=== PATIENT | female | born 1940 | race Caucasian/White ===

== ENCOUNTER 2022-04-12 08:42 | Day surgery (SDC) | payer MEDICARE, OTHER, SELFPAY ==
[2022-04-12] VITALS (7 sets, daily range): BP systolic 114–150; BP diastolic 71–90; PULSE 59–96; RESP 16–18; TEMP 36.1–36.2; O2SAT 93–99; BMI 28.6
--- NOTE | 2022-04-12 09:18 | PCM.HP.BLA ---
History and Physical Date of Admission: 04/12/22 Visit Reasons: HERNIA CONTAINING BOWEL Chief Complaint: right inguinal hernia, hx hernia repair Commercial Stripper Required: No Is patient in pain?: No Allergies ampicillin Allergy (Mild, Verified 04/06/22 15:25) rash Medications amlodipine 2.5 mg tablet tablet PO 04/06/22 [History Confirmed 04/06/22] atorvastatin 40 mg tablet tablet PO 04/06/22 [History Confirmed 04/06/22] carvedilol 6.25 mg tablet ea PO 04/06/22 [History Confirmed 04/06/22] cholecalciferol (vitamin D3) 50 mcg (2,000 unit) capsule 50 mcg PO DAILY 04/06/22 [History Confirmed 04/06/22] clopidogrel 75 mg tablet tablet PO 04/06/22 [History Confirmed 04/06/22] dicyclomine 10 mg capsule cap PO 04/06/22 [History Confirmed 04/06/22] paroxetine HCl 20 mg tablet tablet PO 04/06/22 [History Confirmed 04/06/22] vit C,E,zinc,Bb-pryqa-1-lutein-zeaxanthin 250 mg-2.5 mg-0.5 mg capsule 1 cap PO BID cap 04/06/22 [History Confirmed 04/06/22] Is last menstrual period known: No Post menopausal: Yes Patient : No PFSH Medical History (Updated 04/06/22 @ 15:[address] 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 The patient early in February had severe right lower quadrant abdominal pain. She had had a CT scan at [facility] showing possible constipation extensive diverticulosis but no diverticulitis. She was diagnosed with a urinary tract infection at that time. She was placed on cephalexin therapy for 10 days. She had a CT angiogram of the abdomen September 2021 which showed 30% renal artery stenosis. She had a small fat-containing left inguinal hernia. Inflammatory changes of the right lower quadrant abdominal wall suspicious for previous surgery. Her initial referral was for evaluation of the abdominal pain with likely consideration for endoscopic evaluation. Among her other medications she is on clopidogrel. Report is that she had a right inguinal hernia repair and umbilical hernia repair done by Dr. Loaiza January 2021. She is also had a right total hip replacement. Her most recent screening colonoscopy was by Dr. Jesus Amador February 28, 2017 and was unremarkable. She is being referred by Dr. Dyan Portillo and a written copy of my surgical consult recommendations will be returned to her. The patient is continued to have episodes of pain. On January 26, 2021 at [facility] she had a complete abdominal ultrasound. Gallbladder appeared normal. It is stated that in the area of tenderness by the patient right lower quadrant there is felt to be a hernia containing bowel with the portion of bowel external dickson abdominal wall measuring 3.2 x 1.6 x 2.1 cm ROS General General: No weight change, appetite, fatigue, colon cancer, breast cancer or weakness HEENT HEENT: Yes eye surgery; No difficulty swallowing, eye injury, swollen glands or hoarseness Endo Endocrine: No thyroid disease, diabetes mellitus, thyroid cancer, Hair loss, heat intolerance or cold intolerance Musc Musculoskeletal: Yes back problems, arthritis and rheumatoid arthritis; No gout or joint pain Cardio Cardiovascular: Yes murmur, heart disease, high blood pressure and heart stent; No pacemaker, atrial fibrillation, heart attack, palpitations, shortness of breat with exertion or chest pain Psych Psychiatric: Yes anxiety; No depression or hearing voices Resp Respiratory: No shortness of breath, Yes sleep apnea, No cough, No COPD, No asthma, No emphysema and No wheezing Gastro Gastrointestinal: Yes abdominal pain, No nausea or vomiting, No diarrhea, No constipation, No blood in stool, No acid reflux, No hemorrhoids, No ulcers, No gallbladder problem and No black,tarry stools Jim Hematologic: Yes blood thinners, No blood disorders, No bleeding, No anemia and No blood clots Neuro Neurologic: No weakness Exam Const General: cooperative, healthy appearing, comfortable and no acute distress Nutritional Appearance: obese Orientation: alert and awake [facility] Head: normal to inspection Eyes General: appearance normal, both eyes and all related structures Neck Neck: normal visual inspection Resp Effort & Inspection: normal respiratory effort Auscultation: clear to auscultation bilaterally Cardio Rate: regular rate Rhythm: regular rhythm GI Other: , Nontender, incisional hernia at the superior portion of the umbilicus reducible, 2 infraumbilical midline incisions, tenderness right infraumbilical area with an associated vertical right perirectus incision, distinct fascial defect not palpable, no gross inguinal defects, normal bowel sounds, somewhat prune shaped abdominal wall Musc Cervical Spine: normal cervical lordosis Skin General: no rashes or lesions noted Neuro General: patient alert, patient awake and patient oriented x3 Extrem General: no calf tenderness Psych Appearance: grossly normal Assessment and Plan Assessment and Plan (1) Abdominal pain: Status: Acute Qualifiers: Abdominal location: right lower quadrant Qualified Code(s): R10.31 - Right lower quadrant pain (2) Incisional hernia: Status: Acute Qualifiers: Obstruction and gangrene presence: without obstruction or gangrene Qualified Code(s): K43.2 - Incisional hernia without obstruction or gangrene (3) Chronic constipation: Status: Chronic Plan - Dr. Eddy Moraes MD: Challenging 82-year-old female with spasms of right lower quadrant pain. On CT imaging she has significant amount of right-sided stool. She does not seemingly correlate bowel movements or use of fiber supplement or MiraLAX as helping or hindering her discomfort. She has had this problem for least 2 years but the frequency is increasingly frequent. The spasms of pain can be very severe and she tries to assist by lying flat and providing some pressure in that area. As noted the CT scan does not suggest a hernia however she does have an incisional hernia at the umbilicus which is visible on CT and there does appear to be some thinning of the right lower quadrant fascia. On review of the ultrasound there still appears to be fascia intact exterior to the questionable bowel. I therefore wonder whether this could be a Dale's hernia with a incomplete abdominal wall defect. Her most recent colonoscopy was 5 years ago. She otherwise has somewhat of a lax abdominal wall. She has had multiple previous procedures. I propose for her colonoscopy. I propose that she initiate MiraLAX daily to see if a more aggressive approach to resolving her significant right-sided constipation assist with her discomfort. If the colonoscopy is completely unremarkable and if the increased bowel regimen fails to reduce her episodes of discomfort then I propose for her a laparoscopic inspection with possible hand-assisted or conversion to open if required. As noted I have some suspicion that she has a right lower quadrant Dale's hernia perhaps related to one of her previous attempted hernia repairs. The patient and her have had an opportunity to ask and have questions answered. I appreciate the opportunity of assisting with her surgical care. We will schedule and proceed as noted. Copy:Dr. Dyan Moraes M.D., F.A.C.S. I have re-examined the patient. There are no clinical changes since date of exam. Eddy Moraes M.D., F.A.C.S.
[2022-04-12] MEDS: Lactated Ringers 1,000 ML 15 ML IV (09:27)
--- NOTE | 2022-04-12 11:22 | OP.COLON_ITS ---
Patient Name: Amina Lowe Procedure Date: 04/12/2022 10:37 AM Date of : 1940 Age: 82 Procedure: Colonoscopy Indications: Abdominal pain in the right lower quadrant Providers: Eddy Moraes MD Medicines: See the Anesthesia note for documentation of the administered medications Patient Profile: Last Colonoscopy: 5 years ago. Complications: No immediate complications. Procedure: Pre-Anesthesia Assessment: - Prior to the procedure, a History and Physical was performed, and patient medications and allergies were reviewed. The patient's tolerance of previous anesthesia was also reviewed. The risks and benefits of the procedure and the sedation options and risks were discussed with the patient. All questions were answered, and informed consent was obtained. Prior Anticoagulants: The patient has taken no previous anticoagulant or antiplatelet agents. ASA Grade Assessment: III - A patient with severe systemic disease. After reviewing the risks and benefits, the patient was deemed in satisfactory condition to undergo the procedure. After I obtained informed consent, the scope was passed under direct vision. Throughout the procedure, the patient's blood pressure, pulse, and oxygen saturations were monitored continuously. The adult colonoscope was introduced through the anus and advanced to the cecum, identified by appendiceal orifice and ileocecal valve. The colonoscopy was unusually difficult due to a redundant colon. The patient tolerated the procedure well. The quality of the bowel preparation was fair. The ileocecal valve was photographed. Scope In: 10:48:52 AM Scope Out: 11:16:27 AM Total Procedure Duration Time 0 hours 27 minutes 35 seconds Findings: The digital rectal exam findings include non-thrombosed external hemorrhoids, non-thrombosed internal hemorrhoids and internal hemorrhoids that prolapse with straining, but spontaneously regress to the resting position (Grade II). Multiple small and large-mouthed diverticula were found in the entire colon. The exam was otherwise without abnormality. Impression: - Preparation of the colon was fair. - Non-thrombosed external hemorrhoids, non-thrombosed internal hemorrhoids and internal hemorrhoids that prolapse with straining, but spontaneously regress to the resting position (Grade II) found on digital rectal exam. - Diverticulosis in the entire examined colon. - The examination was otherwise normal. - No specimens collected. No findings to correlate with RLQ abdominal pain Recommendation: - Discharge patient to home. - Resume previous diet. - Continue present medications. - Repeat colonoscopy is not recommended due to current age (66 years or older) for screening purposes. - Telephone my office if any episodes of right lower quadrant pain over the next couple days--if so, then consider surgery for suspected Dale's hernia Procedure Code(s): --- Professional --- 95968, Colonoscopy, flexible; diagnostic, including collection of specimen(s) by brushing or washing, when performed (separate procedure) Diagnosis Code(s): --- Professional --- K64.1, Second degree hemorrhoids K64.4, Residual hemorrhoidal skin tags R10.31, Right lower quadrant pain K57.30, Diverticulosis of large intestine without perforation or abscess without bleeding CPT copyright 2017 [employer]. All rights reserved. The codes documented in this report are preliminary and upon desizing machine offbearer review may be revised to meet current compliance requirements. Eddy Moraes MD 04/12/2022 11:22:33 AM This report has been signed electronically. Number of Addenda: 0 Note Initiated On: 04/12/2022 10:37 AM
--- NOTE | 2022-04-12 11:23 | OP.CCLET_ITS ---
04/12/2022 Dyan Portillo Md Re : Colonoscopy procedure for Amina Jordanr Lindsey This procedure was performed on Tuesday, April 12, 2022. My impressions and recommendations are as follows: Impressions : - Preparation of the colon was fair. - Non-thrombosed external hemorrhoids, non-thrombosed internal hemorrhoids and internal hemorrhoids that prolapse with straining, but spontaneously regress to the resting position (Grade II) found on digital rectal exam. - Diverticulosis in the entire examined colon. - The examination was otherwise normal. - No specimens collected. No findings to correlate with RLQ abdominal pain Recommendations : - Discharge patient to home. - Resume previous diet. - Continue present medications. - Repeat colonoscopy is not recommended due to current age (66 years or older) for screening purposes. - Telephone my office if any episodes of right lower quadrant pain over the next couple days--if so, then consider surgery for suspected Dale's hernia My findings are described in the full procedure note, which is enclosed. If I can be of further assistance, please feel free to contact me at Doctor phone number(s): Work: . Sincerely, Eddy Moraes MD 04/12/2022 11:22:33 AM This report has been signed electronically.
== END 2022-04-12 12:21 | disposition home or self-care (01) ==
LOC: EN 08:44 → AC 08:46
PROVIDERS: PCP Family Medicine; Referring Provider Family Medicine; Visit Provider Surgery
PROC: 0DJD8ZZ Inspection of Lower Intestinal Tract, Via Natural or Artificial Opening Endoscopic (ICD-10-PCS; CPT 45378; principal; 2022-04-12 09:40)
DX: K57.30 Diverticulosis of large intestine without perforation or abscess without bleeding (principal); M06.9 Rheumatoid arthritis, unspecified; K43.2 Incisional hernia without obstruction or gangrene; K59.09 Other constipation; F41.9 Anxiety disorder, unspecified; I11.9 Hypertensive heart disease without heart failure; M19.90 Unspecified osteoarthritis, unspecified site; Z79.899 Other long term (current) drug therapy; Z79.02 Long term (current) use of antithrombotics/antiplatelets; Z86.73 Personal history of transient ischemic attack (TIA), and cerebral infarction without residual deficits; Z87.19 Personal history of other diseases of the digestive system; E78.00 Pure hypercholesterolemia, unspecified; Z95.5 Presence of coronary angioplasty implant and graft; Z90.49 Acquired absence of other specified parts of digestive tract; K64.1 Second degree hemorrhoids; K64.4 Residual hemorrhoidal skin tags; G47.30 Sleep apnea, unspecified
CPT/HCPCS: 45378; J7120; J2405

== ENCOUNTER 2022-07-27 09:52 | Observation (INO) | payer MEDICARE, OTHER, SELFPAY ==
--- NOTE | 2022-07-22 12:29 | EKG12_ITS ---
Test Reason : PREOP Blood Pressure : / mmHG Vent. Rate : 063 BPM Atrial Rate : 063 BPM P-R Int : 206 ms QRS Dur : 066 ms QT Int : 454 ms P-R-T Axes : 071 -04 054 degrees QTc Int : 464 ms Sinus rhythm with Premature atrial complexes Otherwise normal ECG Confirmed by KIRSHNA BLANCO, HUANG ([id number]), sound editor LOUIS BLAIR ([id number]) on 07/25/2022 9:40:52 AM Referred By: Eddy Moraes Confirmed By:HUANG KELLER MD
[2022-07-22 12:57] LABS: Hematocrit 37.7 % (37-47); Hemoglobin 12.5 g/dL (12.0-15.0); Mean Corp Hgb Conc 33.2 g/dL (32-36); Mean Corpuscular Hgb 32.4 pg (27.0-32.0); Mean Corpuscular Volume 97.7 fL (81-99); Mean Platelet Vol. 9.9 fl (6.2-12.0); Platelet Count 237 K/mm3 (150-450); RBC Distribution Width CV 13.6 % (11.6-14.6); RBC Distribution Width SD 49.1 fl (35.1-43.9); Red Blood Count 3.86 M/mm3 (4.2-5.4); White Blood Count 4.7 K/mm3 (4.4-11.0)
[2022-07-22 13:20] LABS: Anion Gap 6 (5-15); BUN 16 mg/dL (7-18); BUN/Creat Ratio 22.7 RATIO (10-20); Calcium,Total 8.8 mg/dL (8.5-10.1); Chloride 104 mmol/L (98-107); EST Glomerular Filtration Rate 84 mL/min (>60); Est Glom Filt Rate - Afr Amer 102 mL/min (>60); Glucose 94 mg/dL (74-106); Potassium 4.3 mmol/L (3.5-5.1); Sodium Level 137 mmol/L (136-145)
[2022-07-27] VITALS (12 sets, daily range): BP systolic 123–173; BP diastolic 69–106; PULSE 46–86; RESP 16–18; TEMP 36.2–37.1; O2SAT 92–98; BMI 30.1
[2022-07-27] MEDS: Lactated Ringers 1,000 ML 15 ML IV (06:25)
--- NOTE | 2022-07-27 06:46 | PCM.HP.BLA ---
History and Physical Date of Admission: 07/27/22 Wheelage Clerk Required: No Is patient in pain?: No Allergies ampicillin Allergy (Mild, Verified 05/05/22 09:32) rash Medications amlodipine 2.5 mg tablet 2.5 tablet PO QHS 04/06/22 [History Confirmed 05/05/22] atorvastatin 40 mg tablet 40 tablet PO QHS 04/06/22 [History Confirmed 05/05/22] carvedilol 6.25 mg tablet 6.25 ea PO BID 04/06/22 [History Confirmed 05/05/22] clopidogrel 75 mg tablet 75 tablet PO DAILY 04/06/22 [History Confirmed 05/05/22] dicyclomine 10 mg capsule 10 cap PO DAILY 04/06/22 [History Confirmed 05/05/22] paroxetine HCl 20 mg tablet 20 tablet PO DAILY 04/06/22 [History Confirmed 05/05/22] vit C,E,zinc,Wz-eeypj-6-lutein-zeaxanthin 250 mg-2.5 mg-0.5 mg capsule 1 cap PO DAILY 04/06/22 [History Confirmed 05/05/22] naproxen sodium 220 mg tablet (Aleve) 220 mg PO Q12H PRN Pain 04/07/22 [History Confirmed 05/05/22] PFSH Medical History?(Updated 04/07/22 @ 08:30 by Lily Conner) Anemia Anxiety Arthritis Back pain Cardiology follow-up encounter CPAP (continuous positive airway pressure) dependence Heart disease High cholesterol History of diverticulitis History of edema History of stress test HTN (hypertension) Hx of fracture of arm Hyperlipidemia Hypertension Leg cramps Non-smoker Osteoarthritis Rheumatoid arthritis Stroke/cerebrovascular accident Syncope TIA (transient ischemic attack) Wears glasses Wears hearing aid Surgical History?(Updated 05/05/22 @ 09:31 by Isabel Monday) H/O heart artery stent History of appendectomy History of cardiac catheterization History of cataract extraction History of colonoscopy History of inguinal hernia repair Hx of foot surgery Hx of hammer toe correction Hx of total hip arthroplasty Family History?(Updated 04/06/22 @ 15:24 by Mel Jean) Mother Breast cancer Diabetes CVA (cerebral vascular accident)Sister Breast cancerFather CVA (cerebral vascular accident) Social History?(Updated 04/06/22 @ 15:24 by Mel Jean) Smoking Status:? 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 The patient had an ultrasound of this area at an outside institution suggesting a possible right lower quadrant hernia.? I have some suspicion that this could be a Dale's hernia. ? The patient had a significant amount of fecal loading in the right colon so I recommended a colonoscopy which we pursued on April 12, 2022.? Hemorrhoids were noted.? Multiple diverticula noted throughout the entire colon.? There were no findings that seem to correlate with the patient's concerns of right lower quadrant pain.? The patient was given instructions to continue to assess for further bouts of abdominal pain now that she had a bowel prep and she was scheduled for an outpatient follow-up to assess. The patient returns with her today.? Her bowels are functioning better.? She is taking routine MiraLAX.? Despite this she continues to have intermittent bouts of right lower quadrant almost right superior groin pain.? She is able to lie supine massage to the area and get relief My previous notes reflect the following. Visit Reasons: HERNIA CONTAINING BOWEL Chief Complaint: right inguinal hernia, hx hernia repair Wheelage Clerk Required: No Is patient in pain?: No Allergies ampicillin Allergy (Mild, Verified 04/06/22 15:25) rash Medications amlodipine 2.5 mg tablet tablet PO 04/06/22 [History Confirmed 04/06/22] atorvastatin 40 mg tablet tablet PO 04/06/22 [History Confirmed 04/06/22] carvedilol 6.25 mg tablet ea PO 04/06/22 [History Confirmed 04/06/22] cholecalciferol (vitamin D3) 50 mcg (2,000 unit) capsule 50 mcg PO DAILY 04/06/22 [History Confirmed 04/06/22] clopidogrel 75 mg tablet tablet PO 04/06/22 [History Confirmed 04/06/22] dicyclomine 10 mg capsule cap PO 04/06/22 [History Confirmed 04/06/22] paroxetine HCl 20 mg tablet tablet PO 04/06/22 [History Confirmed 04/06/22] vit C,E,zinc,Pq-gtpkh-0-lutein-zeaxanthin 250 mg-2.5 mg-0.5 mg capsule 1 cap PO BID? cap 04/06/22 [History Confirmed 06/08/22] Is last menstrual period known: No Post menopausal: Yes Patient : No PFSH Medical History (Updated 04/06/22 @ 15:[address] Eddy Moraes MD) Heart disease HTN (hypertension) Hyperlipidemia Osteoarthritis Sleep apnea Surgical History (Updated 04/06/22 @ 15:23 by Mel Jean) H/O heart artery stent History of appendectomy History of cataract extraction History of colonoscopy History of inguinal hernia repair Family History (Updated 04/06/22 @ 15:24 by Mel Jean) Mother Breast cancer Diabetes CVA (cerebral vascular accident) Sister Breast cancer Father CVA (cerebral vascular accident) Social History (Updated 04/06/22 @ 15:24 by Mel Jean) Smoking Status:? 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 The patient early in February had severe right lower quadrant abdominal pain.? She had had a CT scan at [facility] showing possible constipation extensive diverticulosis but no diverticulitis.? She was diagnosed with a urinary tract infection at that time.? She was placed on cephalexin therapy for 10 days.? She had a CT angiogram of the abdomen September 2021 which showed 30% renal artery stenosis.? She had a small fat-containing left inguinal hernia.? Inflammatory changes of the right lower quadrant abdominal wall suspicious for previous surgery.? Her initial referral was for evaluation of the abdominal pain with likely consideration for endoscopic evaluation.? Among her other medications she is on clopidogrel.? Report is that she had a right inguinal hernia repair and umbilical hernia repair done by Dr. Loaiza January 2021.? She is also had a right total hip replacement.? Her most recent screening colonoscopy was by Dr. Jesus Amador February 28, 2017 and was unremarkable.? She is being referred by Dr. Dyan Portillo and a written copy of my surgical consult recommendations will be returned to her. The patient is continued to have episodes of pain.? On January 26, 2021 at [facility] she had a complete abdominal ultrasound.? Gallbladder appeared normal.? It is stated that in the area of tenderness by the patient right lower quadrant there is felt to be a hernia containing bowel with the portion of bowel external dickson abdominal wall measuring 3.2 x 1.6 x 2.1 cm ROS General General: No weight change, appetite, fatigue, colon cancer, breast cancer or weakness HEENT HEENT: Yes eye surgery; No difficulty swallowing, eye injury, swollen glands or hoarseness Endo Endocrine: No thyroid disease, diabetes mellitus, thyroid cancer, Hair loss, heat intolerance or cold intolerance Musc Musculoskeletal: Yes back problems, arthritis and rheumatoid arthritis; No gout or joint pain Cardio Cardiovascular: Yes murmur, heart disease, high blood pressure and heart stent; No pacemaker, atrial fibrillation, heart attack, palpitations, shortness of breat with exertion or chest pain Psych Psychiatric: Yes anxiety; No depression or hearing voices Resp Respiratory: No shortness of breath, Yes sleep apnea, No cough, No COPD, No asthma, No emphysema and No wheezing Gastro Gastrointestinal: Yes abdominal pain, No nausea or vomiting, No diarrhea, No constipation, No blood in stool, No acid reflux, No hemorrhoids, No ulcers, No gallbladder problem and No black,tarry stools Jim Hematologic: Yes blood thinners, No blood disorders, No bleeding, No anemia and No blood clots Neuro Neurologic: No weakness Exam Const General: cooperative, healthy appearing, comfortable and no acute distress Nutritional Appearance: obese Orientation: alert and awake [facility] Head: normal to inspection Eyes General: appearance normal, both eyes and all related structures Neck Neck: normal visual inspection Resp Effort & Inspection: normal respiratory effort Auscultation: clear to auscultation bilaterally Cardio Rate: regular rate Rhythm: regular rhythm GI Other: , Nontender, incisional hernia at the superior portion of the umbilicus reducible, 2 infraumbilical midline incisions, tenderness right infraumbilical area with an associated vertical right perirectus incision, distinct fascial defect not palpable, no gross inguinal defects, normal bowel sounds, somewhat prune shaped abdominal wall Musc Cervical Spine: normal cervical lordosis Skin General: no rashes or lesions noted Neuro General: patient alert, patient awake and patient oriented x3 Extrem General: no calf tenderness Psych Appearance: grossly normal Assessment and Plan Assessment and Plan (1) Abdominal pain: ? ? ? Status: Acute ? ? ? Qualifiers: ? Abdominal location: right lower quadrant? Qualified Code(s): R10.31 - Right lower quadrant pain (2) Incisional hernia: ? ? ? Status: Acute ? ? ? Qualifiers: ? Obstruction and gangrene presence: without obstruction or gangrene? Qualified Code(s): K43.2 - Incisional hernia without obstruction or gangrene (3) Chronic constipation: ? ? ? Status: Chronic ? ? ? Plan - Dr. Eddy Moraes MD: Challenging 82-year-old female with spasms of right lower quadrant pain.? On CT imaging she has significant amount of right-sided stool.? She does not seemingly correlate bowel movements or use of fiber supplement or MiraLAX as helping or hindering her discomfort.? She has had this problem for least 2 years but the frequency is increasingly frequent.? The spasms of pain can be very severe and she tries to assist by lying flat and providing some pressure in that area. As noted the CT scan does not suggest a hernia however she does have an incisional hernia at the umbilicus which is visible on CT and there does appear to be some thinning of the right lower quadrant fascia.? On review of the ultrasound there still appears to be fascia intact exterior to the questionable bowel.? I therefore wonder whether this could be a Dale's hernia with a incomplete abdominal wall defect. Her most recent colonoscopy was 5 years ago.? She otherwise has somewhat of a lax abdominal wall.? She has had multiple previous procedures. I propose for her colonoscopy.? I propose that she initiate MiraLAX daily to see if a more aggressive approach to resolving her significant right-sided constipation assist with her discomfort.? If the colonoscopy is completely unremarkable and if the increased bowel regimen fails to reduce her episodes of discomfort then I propose for her a laparoscopic inspection with possible hand-assisted or conversion to open if required.? As noted I have some suspicion that she has a right lower quadrant Dale's hernia perhaps related to one of her previous attempted hernia repairs. The patient and her have had an opportunity to ask and have questions answered.? I appreciate the opportunity of assisting with her surgical care.? We will schedule and proceed as noted. Copy:Dr. Dyan Moraes M.D., F.A.C.S. ROS General General: No weight change, appetite, fatigue, colon cancer, breast cancer or weakness HEENT HEENT: Yes eye surgery; No difficulty swallowing, eye injury, swollen glands or hoarseness Endo Endocrine: No thyroid disease, diabetes mellitus, thyroid cancer, Hair loss, heat intolerance or cold intolerance Skin Skin: No rash or changing moles Musc Musculoskeletal: Yes back problems, arthritis and rheumatoid arthritis; No gout or joint pain Cardio Cardiovascular: Yes murmur, heart disease, high blood pressure and heart stent; No pacemaker, atrial fibrillation, heart attack, palpitations, shortness of breat with exertion or chest pain Psych Psychiatric: Yes anxiety; No depression or hearing voices Resp Respiratory: No shortness of breath, Yes sleep apnea, No cough, No COPD, No asthma, No emphysema and No wheezing Gastro Gastrointestinal: Yes abdominal pain, No nausea or vomiting, No diarrhea, No constipation, No blood in stool, No acid reflux, No hemorrhoids, No ulcers, No gallbladder problem and No black,tarry stools Jim Hematologic: Yes blood thinners, No blood disorders, No bleeding, No anemia and No blood clots Neuro Neurologic: No weakness Assessment and Plan Assessment and Plan (1) Abdominal pain: ?Status:?Acute ?Qualifiers: ?Abdominal location:?right lower quadrant? Qualified Code(s):?R10.31 - Right lower quadrant pain (2) Incisional hernia: ?Status:?Acute ?Qualifiers: ?Obstruction and gangrene presence:?without obstruction or gangrene? Qualified Code(s):?K43.2 - Incisional hernia without obstruction or gangrene Plan With the patient's present I expressed to the patient my ongoing concerns regarding her pain.? Ultrasound performed at [facility] suggested a possible hernia and to my review of the images I have concerns that she has a right lower quadrant Dale's hernia.? Her preoperative imaging demonstrated significant fecal loading of the ascending: And there was some thought that this could be contributing to her pain.? By having formed performed a colonoscopy excluding a right colonic lesion and having the bowel fully prepped thinking that this would relieve her her discomfort seemingly has not achieved that task.? Her bowel function however is improved. At this time I am recommending the patient a laparoscopic separation with careful inspection of the right lower quadrant right groin area.? I am concerned that she has a Dale's type hernia.? The patient however is very much aware that there is a possibility that the ultrasound findings are erroneous and that she has a normal abdominal wall.? She is aware of the potential for intra-abdominal adhesions.? She is aware of bleeding infection bowel injury bowel resection risk.? She is aware that we may have to convert from a laparoscopic to a hand-assisted or open approach.? If I do detect an abdominal wall or groin hernia and anticipate placing a mesh type repair.? I would also anticipate doing a transversus abdominis plane block.? She additionally has a very small incisional defect at the umbilicus.? She has the otherwise healed infraumbilical midline incision and a adjacent vertical right perirectus incision.? She is very much aware that there is the potential that exploration leads to no pertinent finding. The patient is on clopidogrel therapy for 3 coronary stents.? These were placed greater than a year ago.? She is seen by [facility].? We will need to have her obtain cardiology review prior to proceeding with surgery though we will try to expedite this consultation.? I am requesting that her clopidogrel be held 5 days preoperatively. The patient and her have had an opportunity to ask and have questions answered.? We will subsequently schedule and proceed as noted.? I appreciate the ongoing opportunity of assisting with her surgical care. Copy: Dr. Dyan Moraes M.D., F.A.C.S I have interviewed and examined the patient again today. She does find it very difficult to provide a pinpoint description as to her problem. She still says that since her previous visit she has been having intermittent pain and she continually states that it in the area where the appendix would be. Since her colonoscopy her pain has not been as severe but has not abated. The most pertinent feature is that the ultrasound that she had done at the outside hospital did suggest a fascial defect with a loop of bowel present. The patient had a right inguinal hernia repair and umbilical hernia pair a year ago as noted in my history. She does not recall whether she was having right groin pain at that time. She does not point to the right groin is the source of her current pain but she points to the inferior edge of her right superior rectus vertical incision. Not able to palpate a defect at that level. She does have evidence however of a recurrent umbilical incisional defect from her previous repair that was performed in [facility]. We discussed our current plans for access close to the recurrent hernia at the umbilicus with Gamble technique laparoscopic visualization of the abdominal wall as well as right groin area. Possible mesh hernia repair. She is aware that there may be the requiring of lysis of adhesions or even possible bowel resection. She has had an opportunity to ask and have questions answered as has her . We will proceed as noted. Eddy Moraes M.D., F.A.C.S.
--- NOTE | 2022-07-27 07:13 | DCINST_ITS ---
Discharge Instructions Procedure General Surgery Diet Discharge Diet: Light diet - advance as tolerated (if you have questions about your diet instructions, please talk to you doctor.) Activity Discharge Activity: May Not Drive (for 3-5 days or while taking narcotic pain medicine.) May shower in (days): 1 Lifting Restrictions: 10 pounds Dressing / Incision Call your doctor if your incision/area has: Continuous Slow Oozing, Sudden Increased Bleeding, Increased Pain/ Swelling, Increased Redness and Foul Smelling Discharge Call your doctor if you observe: Fever of 101 or Higher Suture Line Care: Avoid Pulling/Pushing and Avoid Pinching/Bending Additional Dressing/Incision Instructions:: Change or remove dressing in 4 days. Leave steri-strips in place for 1 week. Follow Up Care Please Follow Up With: Eddy Moraes MD When: Call [phone] to make an appointment to be seen in about 10 days. Test Results: Test results from this visit will be discussed in further detail at your follow- up appointment, if applicable. Discharge Plan Admission Admit Date/Time: 07/27/22 09:52 Primary Reason for Your Visit: Recurrent ventral umbilical hernia. Spigelian hernia. Attending Provider: Eddy Moraes Primary Care Provider: Dyan Portillo Instructions Additional Instructions / Restrictions: Recommend no lifting greater than 10 pounds for 1 week Follow-up in [address] Moraes No driving for 3-5 days You may take Tylenol for pain as needed You have also been provided a narcotic pain medication as needed for pain. Please do not drive while taking narcotic pain medication. You may also experience constipation. You may take Miralax to assist with constipation and/or progression of bowel movements. Please contact our office if any questions or concerns. Discharge Orders/Prescriptions Prescriptions: New acetaminophen 500 mg Tablet 1,000 mg PO Q6 Qty: 0 0RF oxycodone 5 mg Tablet 5 mg PO Q6H 2 Days Qty: 6 0RF Continued carvedilol 6.25 mg tablet 6.25 ea PO BID Label Comments: TAKE 1 TABLET BY MOUTH TWICE DAILY dicyclomine 10 mg capsule 10 cap PO PRN PRN (Reason: Cramps) paroxetine HCl 20 mg tablet 20 tablet PO QHS clopidogrel 75 mg tablet 75 tablet PO DAILY atorvastatin 40 mg tablet 40 tablet PO QHS vit C,E,Zn,Ab--rjn-zeax 250-2.5-0.5 mg capsule 1 cap PO DAILY naproxen sodium [Aleve] 220 mg Tablet 220 mg PO Q12H PRN (Reason: Pain) Referrals / Follow Up: Dyan Portillo MD [Primary Care Provider] - Eddy Moraes MD [Med Staff - Active Staff] - (Please call to schedule an appointment for 10 day follow-up) Disposition Disposition (needs filled in before D/C Order can be placed): Home, Self Care
[2022-07-27] MEDS: Clindamycin 900 MG/50 ML BAG 75 MG IV (07:21)
--- NOTE | 2022-07-27 07:30 | HERN_PTH ---
PATIENT: DESTINY REEDER LOC: [facility] U#:[id number] AGE/SX: 82/F ROOM: GA306 RE07/27/[address]: Dr. Eddy Moraes MD : 1940 BED: 1 DIS: 07/28/2022 SPEC #: [id number] RECD: 07/27/22 12:38 STATUS: TALITA ORANTES #: [id number] JOSE: 07/27/22 07:[address]: Eddy Moraes DEPT: SURGICAL PATHOLOGY RECD BY: Rere Yee ENTERED: 07/28/22 08:19 SP TYPE: Hernia OTHR DR: Dr. Dyan Portillo MD Tissues: A - HERNIA B - HERNIA Procedures: Surgery Specimen Level II HEADER OPERATION: Laparoscopic Spigelian hernia repair with mesh PRE-OP DIAGNOSIS: Abdominal pain, incisional hernia TISSUE SUBMITTED: A ? Recurrent incisional umbilical hernia, B ? Right lower quadrant Spigelian hernia MICROSCOPIC DIAGNOSIS A. Recurrent incisional umbilical hernia: Fragments of fibroadipose and fibroconnective tissue, clinically incisional umbilical hernia. B. Right lower quadrant Spigelian hernia: A piece of mesothelial-lined fibroadipose and fibroconnective tissue, clinically spigelian hernia, with reactive changes. ALPESH:rogelio 07/29/2022 MICROSCOPIC DESCRIPTION Slides are reviewed. GROSS DESCRIPTION A - Received in fixative is one container labeled with the patient's name and designated recurrent incisional umbilical hernia. The specimen consists of four variable sized pieces of yellow adipose tissue measuring in aggregate 10 x 6.5 x 2 cm. No mass lesion is identified. Card Seller sections are submitted in two cassettes. B - Received in fixative is one container labeled with the patient's name and designated right lower quadrant Spigelian hernia. The specimen consists of an irregular piece of yellow adipose tissue measuring 7.5 x 2.5 x 1.5 cm. No mass lesion is identified. Card Seller sections are submitted in one cassette. / ALPESH:rogelio 07/28/2022 TC:5 CPT: 52128 x2
[2022-07-27] MEDS: Lactated Ringers 1,000 ML 40 ML IV (09:31)
[2022-07-27] MEDS: 0.9% Normal Saline (Pres. free 10 ML Vial (09:35)
[2022-07-27] MEDS: BUPIVACAINE LIPOSOME/PF 20 ML VIAL OPERA.SITE (09:35)
--- NOTE | 2022-07-27 09:41 | OP.PCM_ITS ---
Report of Operation Date of Procedure: 07/27/22 Pre-Operative Diagnosis: Recurrent ventral incisional umbilical hernia. Suspec maría elena right lower quadrant Dale's hernia. Post-Operative Diagnosis: Extensive intra-abdominal anterior abdominal wall adhesions. 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 Laparoscopic right lower quadrant spigelian herniorrhaphy with ventral light ST 10.2 x 15.2 cm. Reference [id number], lot [id number], expiry date 09/26/2023 Recurrent ventral incisional herniorrhaphy at the umbilicus with [address] hernia patch. Reference #[id number], lot number [id number], expiry date 12/27/2023 Bilateral transabdominal plane block Description of Surgical Findings:: Timeout and informed consent was obtained. 82-year-old female was taken to the operating placed upon the table underwent general endotracheal ovation esthesia. Clindamycin 900 mg were given intravenously. The abdomen was sterilely prepped and draped. Ioban draping was used as well. 20 cc of Exparel was mixed with 40 cc of 0.25% Marcaine and diluted 200 cc with saline. This was used for local as well as the tap block. Super the umbilicus local was instilled vertical incision was created sharp dissection carried down through the subcutaneous tissue a recurrent ventral incisional hernia at the umbilicus was encountered preperitoneal fatty tissue was dissected free and then it became apparent it was a very exuberant amount of fibrofatty tissue and using electrocautery I excised all this excess preperitoneal tissue and submitted that a specimen. Gamble catheter was inserted the abdomen was insufflated with CO2 to a pressure of 10 mmHg pressure evidence revealed multiple adhesions to the anterior abdominal wall at the site of a previous umbilical herniorrhaphy and as well at the site of the right lower quadrant pararectus incision. Did sharp and electrocautery dissection to completely free the omentum. Fortunately is no bowel involvement. Having performed that aspect and I felt identified what was likely a spigelian hernia in the right lower quadrant care home between the anterior iliac crest and the umbilicus. I incised the peritoneum was and dissected the peritoneum free when it became apparent that this was actually a partial-thickness hernia with the sac extending between transversalis fascia and internal and external bleak. The external bleak appear to be completely intact. However subsequent to the MRI dissection performed I felt that was pertinent now to repair and replace this area. I placed the 10.2 x 15.[address] mesh with 4 corner sutures of 2-[address] that so as to overlap the amount of peritoneal dissection area that I performed. Used a grainy needle and a parachuting technique to pull up the 4 corner sutures and then do secure strap at 1 to 2 cm intervals at the periphery and then several centrally to eliminate seroma formation. Excellent coverage of the defect area was achieved. The greater omentum was then placed overlying the small bowel. Hemostasis was intact. Under laparoscopic visualization I performed a bilateral transabdominal plane block. This was done extensively down the right epigastric and subcostal area and right lateral abdomen under laparoscopic sedation. Performed a block on the left subcostally and then down more medially on the left closer to the umbilical area. Having achieved that now finally I placed an 8 cm Ventralex mesh at the recurrent incisional site at the umbilicus and secured the tails in place with interrupted 0 Nurolon then approximated the fascia transversely with the same securing the portion of the mesh centrally. Placed laparoscope back in and reinspected this area small adhesion to the omentum was released. The ventral light in the Ventralex had both been irrigated. This was to activate their nonadherent surfaces. I then used secure strap to further flat and secure the ventral Dipak mesh and add a couple additional securing tacks to the ventral light mesh. I felt that I had excellent positioning of both pieces of mesh and re solution of the patient's right lower quadrant pain issue with resolution of the partial abdominal wall hernia and a spigelian location. Trochars were removed and the abdomen was allowed to deflate of the CO2 through an antiviral valve. Wound edges were approximated with 4-0 Monocryl Monocryl subdermal stitches. Steri-Strips Telfa OpSite dressings were applied. Sponge and instrument and needle counts were reported to the surgeon to be correct. Specimen contents of the recurrent ventral incisional hernia at the umbilicus preperitoneal fatty tissue. Secondarily remnants of the right lower quadrant spigelian hernia sac. Drains none. Blood loss 10 cc. She was taken to the recovery room in satisfactory addition without apparent complication Eddy Moraes M.D., F.A.C.S. Surgeon: Eddy Moraes Type of Anesthesia: General/Regional Anesthesiologist: Zoya Yeung
[2022-07-27] MEDS: Docusate Sodium 100 MG Capsule PO ×2 (16:17→21:13)
[2022-07-27] MEDS: Carvedilol 6.25 MG Tablet PO ×2 (16:17→21:14)
[2022-07-27] MEDS: Acetaminophen 500 MG Tablet 1000 MG PO (16:17)
[2022-07-27] MEDS: oxyCODONE 5 MG Tablet PO (16:25)
--- NOTE | 2022-07-27 17:40 | CPS ---
patient cannot hear.
[2022-07-27] MEDS: Paroxetine 20 MG Tablet PO (21:13)
[2022-07-27] MEDS: Atorvastatin Calcium 40 MG Tablet PO (21:14)
[2022-07-28] MEDS: Acetaminophen 500 MG Tablet 1000 MG PO ×3 (00:12→12:27)
[2022-07-28 01:00] VITALS: BP 148/87; PULSE 80; RESP 18; TEMP 36.7; O2SAT 95
[2022-07-28 03:49] VITALS: BP 148/87; PULSE 80; RESP 18; TEMP 36.7; O2SAT 95
--- NOTE | 2022-07-28 05:28 | NURSING ---
Pt up and ambulated in hallway. Tolerated well.
--- NOTE | 2022-07-28 06:28 | PCM.PN.SRG ---
Subjective Subjective Patient is comfortable at rest. No flatus. No nausea. Objective Data Objective Data Vital Signs: Vital Signs Temp Pulse Resp BP Pulse Ox O2 Del Method O2 Flow Rate 98.1 F 80 18 148/87 H 95 Room Air 2 07/28/22 03:49 07/28/22 03:49 07/28/22 03:49 07/28/22 03:49 07/28/22 03:49 07/28/22 03:49 07/27/22 14:07 Oxygen Flow Rate (L/min) 2 Oxygen Delivery Method Room Air Weight: 154 lb 5.177 oz Body Mass Index (BMI) 30.1 Intake & Output: Intake and Output for Last 24 Hours 07/26/22 07/27/22 07/28/22 23:59 23:59 23:59 Intake Total 1050 / 1050 794.67 / 794.67 Output Total 100 / 300 200 / 200 Balance 950 / 750 594.67 / 594.67 Lab / Micro Data Result Diagrams: 07/22/22 12:22 07/22/22 12:22 Physical Exam Resp normal respiratory effort and clear to auscultation bilaterally GI GI Narrative: Distended, quiet, nontender to palpation, dressings clean and dry Assessment & Plan Assessment/Plan (1) Incisional hernia: QUALIFIERS: Obstruction and gangrene presence: without obstruction or gangrene Qualified Code(s): K43.2 - Incisional hernia without obstruction or gangrene (2) Spigelian hernia: PLAN: Plan Patient with lysis of adhesions and repaired recurrent ventral incisional hernia and repair of right lower quadrant spigelian hernia. Need to continue to mobilize. We will prescribe a K pad to assist. Patient will be reevaluated later today for progress regarding possible discharge. Eddy Moraes M.D., F.A.C.S.
[2022-07-28 07:00] VITALS: BP 130/89; PULSE 60; RESP 16; TEMP 36.5; O2SAT 94
[2022-07-28 07:25] VITALS: O2SAT 94
[2022-07-28 07:49] VITALS: BP 130/89; PULSE 60; RESP 16; TEMP 36.5; O2SAT 94
--- NOTE | 2022-07-28 09:45 | CASEMGMT ---
MOMO CM into pt room to discuss GAMBINO form. Explained GAMBINO form to patient and patient verbalized understanding. Pt signed GAMBINO form. Filed original in patient chart and provided a copy to patient. Patient denies further needs. Pt denies any homegoing needs as well. Pt feels safe to dc home.
[2022-07-28] MEDS: Docusate Sodium 100 MG Capsule PO (09:46)
[2022-07-28] MEDS: Carvedilol 6.25 MG Tablet PO (09:46)
[2022-07-28] MEDS: FLU VACC QS2022-23(6MOS UP)/PF 60 MCG/0.5 ML SYRINGE IM (09:47)
[2022-07-28 13:00] VITALS: BP 158/92; PULSE 63; RESP 15; TEMP 36.8; O2SAT 94
--- NOTE | 2022-07-28 13:02 | CASEMGMT ---
Social Work SW in to verify AD with pt. Pt also in room. SW informed that AD documents are not on file with [facility]. Pt , Hong, is pt [employer] agent and informed he would bring in documents if able to find them. KAITLIN Santiago
--- NOTE | 2022-07-28 15:35 | PCM.DC.SUM ---
Providers Date of Admission: 07/27/22 Primary Care Physician: Dr. Dyan Portillo MD Reason For Visit: VENTRAL/UMBILICAL HERNIA REPAIR MESH Diagnosis Discharge Diagnosis (1) Incisional hernia: Status: Acute Code(s): K43.2 - Incisional hernia without obstruction or gangrene Qualifiers: Obstruction and gangrene presence: without obstruction or gangrene Qualified Code(s): K43.2 - Incisional hernia without obstruction or gangrene (2) Spigelian hernia: Status: Acute Code(s): K43.9 - Ventral hernia without obstruction or gangrene Medications at Discharge Home Medications atorvastatin 40 mg tablet 40 tablet PO QHS 04/06/22 carvedilol 6.25 mg tablet 6.25 ea PO BID 04/06/22 clopidogrel 75 mg tablet 75 tablet PO DAILY 04/06/22 dicyclomine 10 mg capsule 10 cap PO PRN PRN Cramps 04/06/22 paroxetine HCl 20 mg tablet 20 tablet PO QHS 04/06/22 vit C,E,zinc,Ja-ajkuu-3-lutein-zeaxanthin 250 mg-2.5 mg-0.5 mg capsule 1 cap PO DAILY 04/06/22 naproxen sodium 220 mg tablet (Aleve) 220 mg PO Q12H PRN Pain 04/07/22 acetaminophen 500 mg tablet 1,000 mg PO Q6 #0 tabs 07/28/22 docusate sodium 100 mg capsule 100 mg PO BID 4 days #8 caps 07/28/22 oxycodone 5 mg tablet 5 mg PO Q6H 2 days #6 tabs 07/28/22 Hospital Course Operations - (Laparoscopic exploration with laparoscopic lysis of adhesions. Laparoscopic right lower quadrant spigelian herniorrhaphy with mesh and Recurrent ventral incisional herniorrhaphy at the umbilicus with 8 cm diameter mesh) Summary of Care Provided Minutes Spent on Discharge: 25 Hospital Course: Patient is an 82 y/o F who presents for an elective recurrent ventral incisional umbilical hernia and Spigelian hernia. Dr. Moraes performed a Laparoscopic exploration with laparoscopic lysis of adhesions. Laparoscopic right lower quadrant spigelian herniorrhaphy with ventral light ST 10.2 x 15.2 cm.? Reference [id number], lot [id number], expiry date 09/26/2023. Recurrent ventral incisional herniorrhaphy at the umbilicus with [address] hernia patch.? Reference #[id number], lot number [id number], expiry date 12/27/2023. Bilateral transabdominal plane block on 07/27/22. Patient tolerated the procedure well. Patient had an uncomplicated hospitalization. Upon discharge, patient's pain was controlled. Positive flatus. She tolerated clear liquids. She was urinating well. Negative nausea, vomiting. Patient met criteria for discharge. Weight / BMI Weight Weight: 154 lb 5.177 oz Body Mass Index (BMI) 30.1 ABG / Lab / Microbiology Data Result Diagrams: 07/22/22 12:22 07/22/22 12:22 D/C Instructions Discharge Diet: Light diet - advance as tolerated (if you have questions about your diet instructions, please talk to you doctor.) May shower in (days): 1 Call your doctor if your incision/area has: Continuous Slow Oozing, Sudden Increased Bleeding, Increased Pain/ Swelling, Increased Redness and Foul Smelling Discharge Call your doctor if you observe: Fever of 101 or Higher Suture Line Care: Avoid Pulling/Pushing and Avoid Pinching/Bending Additional Dressing/Incision Instructions: Change or remove dressing in 4 days. Leave steri-strips in place for 1 week. Please Follow Up With: Eddy Moraes MD When: Call [phone] to make an appointment to be seen in about 10 days. Meaningful Use Info Meaningful Use Diagnoses (Choose all that apply): None applicable Discharge Plan Admission Admit Date/Time: 07/27/22 09:52 Primary Reason for Your Visit: Recurrent ventral umbilical hernia. Spigelian hernia. Attending Provider: Eddy Moraes Primary Care Provider: Dyan Portillo Instructions Additional Instructions / Restrictions: Recommend no lifting greater than 10 pounds for 1 week Follow-up in [address] Moraes No driving for 3-5 days You may take Tylenol for pain as needed You have also been provided a narcotic pain medication as needed for pain. Please do not drive while taking narcotic pain medication. You may also experience constipation. You may take Miralax to assist with constipation and/or progression of bowel movements. Please contact our office if any questions or concerns. Discharge Orders/Prescriptions Prescriptions: New acetaminophen 500 mg Tablet 1,000 mg PO Q6 Qty: 0 0RF oxycodone 5 mg Tablet 5 mg PO Q6H 2 Days Qty: 6 0RF docusate sodium 100 mg Capsule 100 mg PO BID 4 Days Qty: 8 0RF Continued carvedilol 6.25 mg tablet 6.25 ea PO BID Label Comments: TAKE 1 TABLET BY MOUTH TWICE DAILY dicyclomine 10 mg capsule 10 cap PO PRN PRN (Reason: Cramps) paroxetine HCl 20 mg tablet 20 tablet PO QHS clopidogrel 75 mg tablet 75 tablet PO DAILY atorvastatin 40 mg tablet 40 tablet PO QHS vit C,E,Zn,Jw-rjtot8-wqd-zeax 250-2.5-0.5 mg capsule 1 cap PO DAILY naproxen sodium [Aleve] 220 mg Tablet 220 mg PO Q12H PRN (Reason: Pain) Referrals / Follow Up: Dyan Portillo MD [Primary Care Provider] - Eddy Moraes MD [Med Staff - Active Staff] - (Please call to schedule an appointment for 10 day follow-up) Disposition Disposition (needs filled in before D/C Order can be placed): Home, Self Care Charges/Coding Visit Charges Inpatient E&M: 71926 Disch Hosp (No charge; post-op)
== END 2022-07-28 17:10 | disposition home or self-care (01) ==
LOC: SDC 10:00 → MS3 17:46
PROVIDERS: Admitting Provider Surgery; PCP Family Medicine; Referring Provider Surgery; Visit Provider Surgery
PROC: 0WQF4ZZ Repair Abdominal Wall, Percutaneous Endoscopic Approach (ICD-10-PCS; CPT 49656; principal; 2022-07-27 07:10)
DX: K43.2 Incisional hernia without obstruction or gangrene (principal); M06.9 Rheumatoid arthritis, unspecified; K43.7 Other and unspecified ventral hernia with gangrene; Z96.641 Presence of right artificial hip joint; I10 Essential (primary) hypertension; E78.00 Pure hypercholesterolemia, unspecified; K66.0 Peritoneal adhesions (postprocedural) (postinfection); Z79.899 Other long term (current) drug therapy; Z79.02 Long term (current) use of antithrombotics/antiplatelets; M19.90 Unspecified osteoarthritis, unspecified site; K59.09 Other constipation; K43.9 Ventral hernia without obstruction or gangrene; Z23 Encounter for immunization
CPT/HCPCS: 49656; 49652; 49329; 00832; 36415; 80048; 85027; 88302; 93005; 99218; 99251; G0008; J7120; 90686; C1781; G0378; G0463; J2405; J3490